=== PATIENT | female | born 1990 | race Caucasian/White ===

== ENCOUNTER 2024-12-31 22:05 | Emergency (ER) | payer OTHER, SELFPAY ==
--- NOTE | ~2024-12-31 | XR_ITS ---
CLINICAL HISTORY: SOB 1 view chest x-ray Comparison: None Findings: The lungs are clear. Normal size heart. No acute fracture. IMPRESSION: 1. No acute findings. This document has been electronically signed by: Dorian Dennis MD on 12/31/2024 23:14:14
[2024-12-31 22:33] VITALS: BP 155/81; PULSE 58; RESP 18; TEMP 36.8; O2SAT 97; BMI 48.4
[2024-12-31 23:02] LABS: COVID-19 Test Negative (Negative); IDNOW Serial# 55D5AD1C
[2024-12-31 23:03] LABS: IDNOW Serial# 58CA691E; Influenza A Negative (Negative); Influenza B2 Negative (Negative)
[2025-01-01 02:05] VITALS: BP 143/74; PULSE 66; RESP 16; TEMP 36.9; O2SAT 96
[2025-01-01 03:10] VITALS: O2SAT 93
[2025-01-01] MEDS: Albuterol Sulfate 5 MG, Albuterol Sulfate (0.083%) 2.5 MG 7.5 MG INHALE (03:31)
[2025-01-01 03:33] VITALS: PULSE 68; RESP 18; O2SAT 98
[2025-01-01] MEDS: Magnesium Sulfate/H2O 2 GM/50 ML PIGGYBACK IV (03:33)
--- NOTE | 2025-01-01 03:52 | ED_ITS ---
HPI - General Adult General Chief complaint: Dyspnea Stated complaint: Asthma Time Seen by Provider: 01/01/25 02:58 Source: patient Limitations: no limitations History of Present Illness ED Provider: Lisbet Paniagua PA-C HPI narrative: 34-year-old female with a history of asthma and morbid obesity, presents with shortness of breath. Patient was recently treated for asthma exacerbation with walking pneumonia 5 days ago. She just completed a course of steroid and a Z- Dimas. Patient states she was advised to seek medical treatment if her symptoms do not improve. Patient states she has been using her home nebulizer treatment as directed, however her symptoms remain refractory. Denies fevers. Related Data Previous Rx's ?Medication ?Instructions ?Recorded cefuroxime axetil 500 mg tablet 500 mg PO Q12H 5 days #10 tabs 01/01/25 prednisone 10 mg tablet 10 mg PO DIRECTED #60 tabs 01/01/25 Allergies Allergy/AdvReac Type Severity Reaction Status Date / Time amoxicillin [Amoxicillin] Allergy Unknown HIVES Verified 12/31/24 22:35 Review of Systems Review of Systems: Yes all other systems are reviewed and are negative Constitutional: Constitutional: Denies fatigue and Denies fever(s) Cardiovascular: Cardiovascular: Denies chest pain and Reports dyspnea Respiratory: Respiratory: Reports cough, Reports dyspnea and Reports wheezing Gastrointestinal: Gastrointestinal: Denies abdominal pain, Denies diarrhea, Denies nausea and Denies vomiting Endocrine: Endocrine: Denies fatigue Allergic/Immunologic: Allergic/Immunologic: Reports wheezing PMFSH Past Medical History Attestation statement: The following information was validated with the patient. Physical Exam ED Vital Signs: Vital Signs - 24 hr 12/31/24 22:33 01/01/25 02:05 01/01/25 03:10 Temperature 98.3 F 98.5 F Pulse Rate 58 66 Respiratory Rate 18 16 Blood Pressure 155/81 H 143/74 H Pulse Oximetry 97 96 93 Oxygen Delivery Method Room Air Room Air Room Air 01/01/25 03:33 01/01/25 06:56 01/01/25 09:32 Temperature 98.6 F Pulse Rate 68 73 77 Respiratory Rate 18 16 16 Blood Pressure 132/75 Pulse Oximetry 97 Oxygen Delivery Method Room Air BMI result Body Mass Index 48.4 Const Other: Alert well-appearing Orientation/consciousness: patient oriented x3 Resp Other: nonlabored respirations, occasional expiratory wheeze noted posterior collado Cardio Other: normal peripheral perfusion Skin Other: warm dry no rash Neuro General: patient oriented x3, gait normal, no focal motor deficits and CN's II- XI intact bilaterally Psych Other: cooperative Course Course Course Narrative: Signed out to the night team pending updraft, reassessment and final disposition Dr. Kenneth Cassidy's note: I assumed care of this patient from my colleague, physician periodontal assistant Lisbet Paniagua at 04:00 hours. Patient is a 34-year-old female with history of asthma who presented to the emergency department for evaluation of 1-2 weeks of shortness of breath. Patient was diagnosed with pneumonia on and treated with a Z-Dimas and prednisone. Patient states that her symptoms did not improve despite this treatment. Patient was treated with albuterol 7.5 mg inhaler, magnesium sulfate 2 g IV and then signed out to me. I did re-evaluate the patient. On her physical examination she did have persistent end-expiratory wheezing with no rales or rhonchi. I ordered another albuterol nebulizer 5 mg. The patient had a COVID-19 and influenza test which were negative. Her chest x-ray was unremarkable. I discuss the possibility of bacterial verses viral bronchitis with the patient and after this discussion the patient was given a dose of cefuroxime 500 mg orally and prednisone 60 mg orally. Patient was given a prescription for cefuroxime 500 mg q.12 hours x5 days and prednisone 60 mg x 5 days with decrease by 10 mg every 2 days until completing a tapering course. The patient did feel better after the 2nd nebulizer treatment and was discharged home with printed and verbal instructions. Medications Administered Discontinued Medications Generic Name Dose Route Start Last Admin Trade Name Freq PRN Reason Stop Dose Admin Albuterol Sulfate 5 mg/ 7.5 mg 01/01/25 03:26 01/01/25 03:31 Albuterol Sulfate 2.5 mg INHALE 01/01/25 03:27 7.5 mg ONCE ONE Administration Albuterol Sulfate 5 mg 01/01/25 06:39 01/01/25 06:56 Albuterol Sulfate 2.5 Mg/0.5 Ml Vial.Neb INHALE 01/01/25 06:40 5 mg ONCE ONE Administration Cefuroxime Axetil 500 mg 01/01/25 06:39 01/01/25 06:47 Cefuroxime Axetil 500 Mg Tablet PO 01/01/25 06:40 500 mg ONCE ONE Administration Magnesium Sulfate 2 gm in 50 mls @ 25 mls/hr 01/01/25 03:12 01/01/25 05:25 Magnesium Sulfate/H2o IV 01/01/25 05:11 Infused ONCE ONE Infusion Prednisone 60 mg 01/01/25 06:39 01/01/25 06:47 Prednisone 20 Mg Tablet PO 01/01/25 06:40 60 mg ONCE ONE Administration Medical Decision Making Medical Decision Making MDM Narrative: 34-year-old female with a history of asthma and morbid obesity, presents with shortness of breath. Patient was recently treated for asthma exacerbation with walking pneumonia 5 days ago. She just completed a course of steroid and a Z- Dimas. Patient states she was advised to seek medical treatment if her symptoms do not improve. Patient states she has been using her home nebulizer treatment as directed, however her symptoms remain refractory. Denies fevers. problem: Asthma History: Per patient I have considered the following differential diagnoses: Asthma exacerbation, bronchitis, pneumonia, viral syndrome Plan: Patient here with refractory asthma symptoms, a viral panel and chest x- ray were obtained from triage, no acute findings. I ambulated the patient her oxygen drops to 93, we will give an updraft, magnesium and reassess. I have independently reviewed the following tests: Labs: Viral panel negative Chest x-ray:Findings: The lungs are clear. Normal size heart. No acute fracture. IMPRESSION: 1. No acute findings. This document has been electronically signed by: Dorian Dennis MD on 12/31/2024 23:14:14 Lab Data Labs: Lab Results 12/31/24 12/31/24 Range/Units 22:41 22:42 COVID-19 ([facility]) Negative (Negative) COVID-19 Clin Com See Note Influenza Type A ([facility]) Negative (Negative) Influenza Type B ([facility]) Negative (Negative) Influenza A & B Note See Note Discharge Plan Discharge Clinical Impression: Asthma with exacerbation, Acute bronchitis Patient Disposition: Home, Self-Care Instructions: Acute Bronchitis (ED) Additional Instructions: Your COVID 19, influenza and RSV tests were negative. Your chest x-ray revealed no evidence for pneumonia at this time. I believe that you have either a bacterial or viral bronchitis. Take cefuroxime 500 mg pills, 1 pill every 12 hours for 5 days. Take prednisone 10 mg pills,6 pills once a day for 5 days, then decrease by 1 pill every 2 days until you complete the prescription.. While you are taking prednisone, do not take any NSAIDs (Motrin, Advil, ibuprofen, Aleve, naproxen). Follow-up with your doctor in 2 days. Please return to the emergency department if your symptoms get worse or if you develop any symptoms that are concerning to you. Prescriptions: New prednisone 10 mg tablet 10 mg PO DIRECTED Qty: 60 0RF Rx Instructions: Day 1 through 5 take 6 pills then decrease by 1 pill every 2 days until you complete prescription cefuroxime axetil 500 mg tablet 500 mg PO Q12H 5 Days Qty: 10 0RF Interventions: ED Discharge Assessment Last Done: 01/01/25 09:32 Discharge Date/Time: 01/01/25 09:32 Print Language: [place]
[2025-01-01] MEDS: cefuroxime axetiL 500 MG TABLET PO (06:47)
[2025-01-01] MEDS: predniSONE 20 MG TABLET 60 MG PO (06:47)
[2025-01-01 06:56] VITALS: PULSE 73; RESP 16; O2SAT 98
[2025-01-01] MEDS: Albuterol Sulfate 2.5 MG/0.5 ML VIAL.NEB 5 MG INHALE (06:56)
[2025-01-01 09:32] VITALS: BP 132/75; PULSE 77; RESP 16; TEMP 37; O2SAT 97
== END 2025-01-01 09:32 | disposition home or self-care (01) ==
PROVIDERS: Emergency Provider Emergency Medicine Emergency Medical Services; PCP Internal Medicine
DX: J40 Bronchitis, not specified as acute or chronic (principal); R06.02 Shortness of breath; Z11.52 Encounter for screening for COVID-19
CPT/HCPCS: 71045; 87502; 87635; 94640; 96365; 96366; 99284; 99285; J3475

== ENCOUNTER → 2024-12-31 22:45 | Outpatient (BNV) | payer OTHER, SELFPAY | PROVIDERS: PCP Internal Medicine; Visit Provider Radiology Diagnostic Radiology | DX: R06.02 Shortness of breath (principal) | CPT/HCPCS: 71045 ==